=== PATIENT | male | born 1995 | race Caucasian/White ===

== ENCOUNTER 2018-05-12 21:42 | Emergency (ER) | payer OTHER ==
[~2018-05-12] VITALS: Ht 175.3 cm; Wt 68.2 kg
[2018-05-12 21:44] VITALS: BP 137/94
--- NOTE | 2018-05-12 22:31 | NUR ---
pt set up for Lac repair
[2018-05-12] MEDS ORDERED: tetanus & diphtheria toxoid (Td) vaccine 0.5ml IMVAC ONE (23:35)
[2018-05-12] MEDS ORDERED: TETanus/Pertussis (Acell)/Diphther VAC/PF (Tdap-Adult) 0.5ml syringe IMVAC ONE (23:40)
== END 2018-05-12 23:55 | disposition home or self-care (01) ==
LOC: ER 21:42
DX: S61.217A Laceration without foreign body of left little finger without damage to nail, initial encounter (principal); F12.90 Cannabis use, unspecified, uncomplicated; Z88.0 Allergy status to penicillin; Z88.2 Allergy status to sulfonamides; W26.0XXA Contact with knife, initial encounter; Y93.89 Activity, other specified; Y92.89 Other specified places as the place of occurrence of the external cause; Y99.8 Other external cause status
CPT/HCPCS: 12001; 90471; 90715; 99283